=== PATIENT | male | born 2000 | race African-American/Black ===

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

== ENCOUNTER 2022-01-06 21:10 | Emergency (ER) | payer OTHER ==
[2022-01-06 21:28] VITALS: BP 128/78; PULSE 59; RESP 17; TEMP 98.2
[2022-01-06] MEDS ORDERED: ACETAMINOPHEN 1000 MG/100 ML BAG IVPB ONE (22:46)
[2022-01-06] MEDS ORDERED: LACTATED RINGERS SOLUTION 1000 ML INFUS.BAG IV ONE (22:46)
[2022-01-06] MEDS ORDERED: ACETAMINOPHEN INJECTION 100 ML IVPB ONE (23:24)
[2022-01-07 00:04] LABS: BASO % 0.5 % (0-2.0); EOS % 0.6 % (0-4.5); HEMATOCRIT 42.8 % (35.4-49); HEMOGLOBIN 14.2 GM/dL (11.7-16.9); LYMPH % 32.3 % (8-40); MCH 27.6 pg (25.7-33.7); MCHC 33.1 g/dl (32.0-35.9); MEAN CELL VOLUME 83.3 fl (80-96); MEAN PLT VOLUME 9.2 fl (7.5-11.1); MONO % 6.9 % (3.8-10.2); NEUT % 59.7 % (42.8-82.8); PLATELET COUNT 226 10^3/uL (134-434); RBC 5.14 M/mm3 (4.00-5.60); RDW 13.9 % (11.9-15.9); WHITE BLOOD COUNT 5.5 K/mm3 (4.0-10.0)
[2022-01-07 00:26] LABS: ALBUMIN 4.5 g/dl (3.4-5.0); CALCIUM 9.2 mg/dL (8.5-10.1)
[2022-01-07 00:27] LABS: BLOOD UREA NITROGEN 7.9 mg/dL (7-18)
[2022-01-07 00:31] LABS: BILIRUBIN,TOTAL 1.5 mg/dL (0.2-1); TOT PROT 7.5 g/dl (6.4-8.2)
== END 2022-01-07 00:59 | disposition home or self-care (01) ==
LOC: JER 21:10
PROC: 3E0333Z Introduction of Anti-inflammatory into Peripheral Vein, Percutaneous Approach (ICD-10-PCS; principal; 2022-01-06)
DX: R00.1 Bradycardia, unspecified (principal)
CPT/HCPCS: 36415; 80053; 85025; 93005; 93010; 99284-25